=== PATIENT | female | born 1990 | race African-American/Black ===

== ENCOUNTER 2017-07-24 13:53 | Emergency (ER) | payer OTHER ==
[~2017-07-24] VITALS: Ht 165.1 cm; Wt 86.7 kg
[~2017-07-24 13:53] MED LIST: IBUP800T23 PO; MEDR150P IM; PRENCAP6 PO; SENN1TAB11; Z.0.NO CURRENT MEDS
[2017-07-24 14:05] VITALS: BP 144/79; PULSE 96; RESP 18; TEMP 98.2; O2SAT 100
[2017-07-24] MEDS ORDERED: IBUP800T23 PO (14:25)
[2017-07-24] MEDS ORDERED: ALPR.5 PO (14:25)
[2017-07-24] MEDS ORDERED: BACL10TA PO (14:25)
[2017-07-24] MEDS ORDERED: ORPHENADRINE INJ 60 MG/2 ML AMP IM ONE (14:45)
[2017-07-24] MEDS ORDERED: KETOROLAC TROMETHAMINE 60 MG/2 ML (IM) VIAL IM ONE (14:45)
[2017-07-24] MEDS ORDERED: CYCL5TAB PO (15:33)
--- NOTE | 2017-07-24 15:35 | PD ---
HPI . Thoracic back pain Chief Complaint: Back/ Neck Pain or Injury Time Seen by Provider: 14:27 Travel History International Travel<30 days: No Contact w/Intl Traveler<30days: No Traveled to known affect area: No History of Present Illness HPI 27-year-old female presents emergency department for evaluation of thoracic level back pain. Patient was moving heavy boxes and equipment on Wednesday when she first started feeling the pain. She said she woke up Wednesday morning it was worse. She called her primary care physician and went in to get evaluated. He gave her a prescription for Percocet and said that he wanted her to have an MRI in the future. Patient states the Percocet makes her feel nauseated. She does not want to take the Percocet anymore. Patient denies any fever, chills, malaise, abdominal pain, chest pain, shortness breath, paresthesias, incontinence of urine or bowel. Patient states she has a history of lower back pain but this back pain is in the mid area of her back proximal to her shoulder blades. Patient has no midline spinal tenderness. The tenderness is on the lateral aspect of each side of the spinal cord. She has no focal neurological deficits are weakness in any extremities. Patient is ambulatory from triage. PFSH Past Medical History Diminished Hearing: No Medical other: Yes (BACK ISSUES) ?: Not LMP: 07/10/17 : 1 Para: 0 Miscarriage: 1 : 0 Past Surgical History Surgical History: No Previous Surgery Social History Alcohol Use: No Tobacco Use: No Substance Use: Yes (MARIJUANA -2 WEEKS AGO ) Allergies-Medications (Allergen,Severity, Reaction): Coded Allergies: acetaminophen (Verified Adverse Reaction, Unknown, Nausea/Vomiting, ) oxycodone (Verified Adverse Reaction, Unknown, Nausea/Vomiting, 07/24/17) Reported Meds & Prescriptions Reported Meds & Active Scripts Active Reported Ibuprofen 800 Mg Tab 800 Mg PO Q6HR PRN Xanax (Alprazolam) 0.5 Mg Tab 0.5 Mg PO Q12HR PRN Baclofen 10 Mg Tab 10 Mg PO TID PRN Review of Systems Except as stated in HPI: all other systems reviewed are Neg Physical Exam Narrative GENERAL: Well-nourished, well-developed 27 year old female patient in no acute distress. Nontoxic appearing. SKIN: Focused skin assessment warm/dry. NEUROLOGICAL: Awake and alert. Cranial nerves II through XII intact. Motor and sensory grossly within normal limits. Five out of 5 muscle strength in all muscle groups. Normal speech. HEAD: Normocephalic. Atraumatic. EYES: No scleral icterus. No injection or drainage. NECK: Supple, trachea midline. No JVD or lymphadenopathy. CARDIOVASCULAR: Regular rate and rhythm without murmurs, gallops, or rubs. RESPIRATORY: Breath sounds equal bilaterally. No accessory muscle use. GASTROINTESTINAL: Abdomen soft, non-tender, nondistended. MUSCULOSKELETAL: Range of motion in all extremities. 5 out of 5 muscle strength in all extremities. No deformities, cyanosis, or edema. BACK: Thoracic level tenderness proximal to the scapula on the lateral aspects of the spine. No midline tenderness. No without obvious deformity, ecchymosis, erythema or cyanosis. No CVA tenderness. r Data Data Last Documented VS Vital Signs Date Time Temp Pulse Resp B/P (MAP) Pulse Ox O2 Delivery O2 Flow Rate FiO2 07/24/17 14:05 98.2 96 18 144/79 (100) 100 Orders Orders Ed Urine Pregnancytest Poc (07/24/17 14:28) Orphenadrine Inj (Norflex Inj) (07/24/17 14:45) MDM Medical Decision Making Medical Screen Exam Complete: Yes Emergency Medical Condition: Yes Differential Diagnosis Current diagnoses include but not limited to muscle strain, muscle sprain, contusion Narrative Course 27-year-old female patient presents emergency department for evaluation of mid level back pain that started on Wednesday when she was moving boxes. Patient has no focal neurological deficit. No paresthesias. Patient is ambulatory. Patient has full range of motion in all extremities. Based on patient's symptoms, clinical presentation, vital sign review and physical exam it is not necessary to admit the patient to the hospital or keep the patient in the emergency department for further evaluation. Patient will be given an IM injection of Norflex discharged home with a prescription for Flexeril and instructions to use heating pads to the area and follow-up with primary care. Diagnosis Primary Impression: Back pain Qualified Codes: M54.6 - Pain in thoracic spine Referrals: Primary Care Physician Patient Instructions: Back Pain (ED), General Instructions Additional Instructions: Please return to emergency department if your symptoms return or worsen. Follow up with your primary care provider. Take medications as prescribed. May use [id number] ibuprofen as needed for pain and swelling May heating pad as needed for pain relief Med/Other Pt SpecificInfo: Prescription(s) given Scripts Cyclobenzaprine (Flexeril) 5 Mg Tab 5 MG PO TID for Muscle Spasm, #10 TAB 0 Refills Prov: Josefina Bose 07/24/17 Disposition: 01 DISCHARGE HOME Condition: Stable Josefina Bose Jul 24, 2017 15:35
== END 2017-07-24 15:49 | disposition home or self-care (01) ==
LOC: PHEFT 13:53
DX: M54.6 Pain in thoracic spine (principal); X50.0XXA Overexertion from strenuous movement or load, initial encounter
CPT/HCPCS: 84703; 96372; 99284; J2360